=== PATIENT | female | born 1940 | race Two or more races ===

== ENCOUNTER 2021-04-09 00:29 | Emergency (ER) | payer OTHER ==
[~2021-04-09] VITALS: Ht 154.9 cm; Wt 49.0 kg
[2021-04-09] MEDS ORDERED: PROZAC10 MG PO (00:41)
[2021-04-09] MEDS ORDERED: VITAMIN C500 MG PO (00:42)
[2021-04-09] MEDS ORDERED: NAMENDA1 EACH PO (00:42)
[2021-04-09] MEDS ORDERED: BACTRIM DS TAB1 EACH PO (03:16)
== END 2021-04-09 03:46 | disposition home or self-care (01) ==
LOC: ER 00:29
DX: I95.9 Hypotension, unspecified (principal); R42 Dizziness and giddiness; N39.0 Urinary tract infection, site not specified; E03.9 Hypothyroidism, unspecified